=== PATIENT | female | born 1980 | race Caucasian/White ===

== ENCOUNTER → 2017-07-05 | Outpatient (CLI) | payer OTHER | END | disposition home or self-care (01) | LOC: C.CPL 07:08 | PROVIDERS: ATTEND Emergency Medicine Emergency Medical Services | DX: F11.20 Opioid dependence, uncomplicated (principal) ==

== ENCOUNTER → 2017-07-18 | Outpatient (CLI) | payer OTHER | END | disposition home or self-care (01) | LOC: C.LAB 06:49 | PROVIDERS: ATTEND Emergency Medicine Emergency Medical Services | DX: F11.20 Opioid dependence, uncomplicated (principal) ==